=== PATIENT | male | born 1960 | race African-American/Black ===

== ENCOUNTER 2017-06-14 11:45 | Emergency (ER) | payer OTHER ==
[~2017-06-14] VITALS: Ht 172.7 cm; Wt 95.3 kg
[2017-06-14 11:45] VITALS: BP 114/78
[2017-06-14] MEDS ORDERED: Activated Charcoal 50gm/240ml Btl ORAL ONE (12:00)
[2017-06-14] MEDS ORDERED: Nulytely 4L ORAL ONE (12:00)
--- NOTE | 2017-06-14 14:15 | Emergency Room Report ---
History of Present Illness General Chief Complaint: Gastrointestinal Illness Source: Patient Present Illness HPI The patient is a 57-year-old male brought in by [employer] after reportedly ingesting several bags of cocaine. The patient stated these were swallowed approximately 2 hours prior to arrival. Patient denies any current symptoms. The patient had multiple previous similar episodes. Patient was not having any vomiting or abdominal pain this time. Allergies: Coded Allergies: No Known Allergies (Unverified , 06/14/17) Patient History Past Medical History: see triage record Reviewed Nursing Documentation: PMH: Agreed, PSxH: Agreed Nursing Documentation-PMH Past Medical History: No History, Except For Hx Hypertension: Yes Hx Diabetes: Yes Review of Systems All Other Systems: negative except mentioned in HPI Physical Exam Vital Signs Date Time Temp Pulse Resp B/P Pulse Ox O2 Delivery O2 Flow Rate FiO2 06/14/17 11:32 98.1 90 16 114/78 96 Room Air Sp02 EP Interpretation: reviewed, normal General Appearance: normal inspection, well appearing, no apparent distress, alert, GCS 15 Head: atraumatic ENT: normal ENT inspection, hearing grossly normal, normal voice Neck: normal inspection, full range of motion, supple, no bony tend Respiratory: normal inspection, lungs clear, normal breath sounds, no respiratory distress, no retraction, no wheezing Cardiovascular #1: regular rate, rhythm, no edema Gastrointestinal: normal inspection, normal bowel sounds, non tender, soft, no guarding, no hernia Genitourinary: no CVA tenderness Musculoskeletal: normal inspection, back normal, normal range of motion Neurologic: normal inspection, alert, oriented x3, responsive, content manager III-XII nml as tested, speech normal Psychiatric: normal inspection, judgement/insight normal, mood/affect normal Skin: normal inspection, normal color, no rash Medical Decision Making ER Course Patient presented for intentional ingestion of cocaine. Differential diagnoses include was not limited to the toxic ingestion, malingering, obstruction, cocaine toxicity among others. Because of complexity of patient's case laboratory testing and imaging studies were ordered.Patient was discussed with Poison Control Center. Patient was given activated charcoal as well as GoLYTELY for full bowel irrigation. The patient was noted to spontaneously vomited one bag. EKG interpreted by me showed normal sinus rhythm with a rate of [address] or T wave changes. Last Vital Signs Date Time Temp Pulse Resp B/P Pulse Ox O2 Delivery O2 Flow Rate FiO2 06/14/17 11:45 98.1 16 114/78 96 Room Air 06/14/17 11:32 90 Status: improved Disposition: D/C TO LAW ENFORCEMENT IN CUST Condition: Stable Referrals: NOT CHOSEN ASHLEY/,REFERRING (PCP) Ashish Osorio Jun 14, 2017 14:15
[2017-06-14 14:17] VITALS: BP 119/82
--- NOTE | 2017-06-14 14:47 | Diagnostic Imaging Report ---
Indication: FB foreign body. History of swallowing cocaine balloons Technique: Supine view of the abdomen Comparison: none Findings: In the right side of the abdomen, there are 3 ovoid lucencies, each measuring approximately 3 cm in diameter. These have a discernible radiopaque rim and therefore probably do not represent bowel gas.. Are in the expected distribution of the ascending and proximal transverse colon. A fourth gas bubble is seen more medially on the right, but this is more questionable, as it does not exhibits a radiopaque rim and is less well-defined. The bowel gas pattern is otherwise unremarkable. Impression: 3 gas bubbles in the right side of the abdomen, distribution suggestive of ascending and proximal transverse colon. Presence of a well-defined radiopaque rim suggests that these do not represent bowel gas, and in fact probably are related to stated clinical history of drug filled balloon ingestion. Findings discussed by phone with Dr. Osorio in the emergency room at time of interpretation
--- NOTE | 2017-06-14 16:39 | Diagnostic Imaging Report ---
Indication: FB status post ingestion of cocaine balloons, followup Technique: Supine view of the abdomen Comparison: 3 hours earlier Findings: Previously demonstrated unusual appearing right colonic gas bubbles are no longer evident. Gas pattern is currently unremarkable. No unusual masses or calcifications Impression: Previously demonstrated unusual gas bubbles are no longer evident. Per distention with referring physician, patient did not defecate any balloons after complete evacuation of the GI tract after charcoal and GoLYTELY ingestion, so the previous finding was probably artifactual in nature. No current evidence of ingested foreign body Findings discussed by phone with Dr. Mcdonnell previously
[2017-06-14 16:49] VITALS: BP 122/79
[2017-06-14 16:50] VITALS: BP 122/79
--- NOTE | 2017-06-14 17:10 | Emergency Room Report ---
Physical Exam Vital Signs Date Time Temp Pulse Resp B/P Pulse Ox O2 Delivery O2 Flow Rate FiO2 06/14/17 11:32 98.1 90 16 114/78 96 Room Air Medical Decision Making Diagnostic Impression: Primary Impression: Foreign body ingestion Qualified Codes: T18.9XXA - Foreign body of alimentary tract, part unspecified , initial encounter Additional Impression: Medical clearance for incarceration ER Course 57-year-old male presents to ER for medical clearance. In police custody. Reportedly ingested balloon was filled with drugs Patient initially seen and evaluated by Dr. Osorio; please see his note for full history and physical Initial x-rays showed air pockets possibly consistent with balloons Case was discussed with poison control. Recommended giving patient charcoal and then GoLYTELY to help patient pass the balloons Patient was supervised after bowel movements. After patient had passed charcoal we then again evaluated he did not find any balloons Patient initially stated that he vomited one balloon and denies ingesting any others. patient maintains that he only ingested one balloon Repeat KUB shows air more consistent with nonspecific gas pattern. discussed with radiology. Discussed case with poison control. Patient will be medically cleared Diagnoses-foreign body ingestion, medical clearance for incarceration Stable and discharged to police custody. Followup with PMD. Return to ED symptoms recur or worsen Other X-Ray Diagnostic Results X-Ray ordered: KUB # of Views/Limited Vs Complete: 1 View EP Interpretation: Yes Interpretation: other - nonspecific gas pattern Indication: Other - ?ingested foreign bodies Impression: No acute disease Interpreting ER Provider: Electronically signed by Ernie Mcdonnell MD Last Vital Signs Date Time Temp Pulse Resp B/P Pulse Ox O2 Delivery O2 Flow Rate FiO2 06/14/17 16:50 97.9 87 14 122/79 98 Room Air Status: improved Disposition: D/C TO LAW ENFORCEMENT IN CUST Condition: Stable Departure Forms: [facility] Clearance Patient Instructions: Substance Use Disorder ERNIE MCDONNELL M.D. Jun 14, 2017 17:10
== END 2017-06-14 16:55 ==
LOC: EDBD 11:45 → EMR 13:20
DX: T40.5X2A Poisoning by cocaine, intentional self-harm, initial encounter (principal); Y92.9 Unspecified place or not applicable; I10 Essential (primary) hypertension; E11.9 Type 2 diabetes mellitus without complications
CPT/HCPCS: 74000; 93005; 99284